=== PATIENT | female | born 1950 | race Caucasian/White ===

== ENCOUNTER 2018-12-26 09:48 | Inpatient (IN) | payer OTHER ==
[2018-12-19 12:45] LABS: URINE BILIRUBIN NEGATIVE (Negative); URINE BLOOD NEGATIVE (Negative); URINE CLARITY CLEAR; URINE COLOR YELLOW; URINE GLUCOSE-RANDOM* NEGATIVE (Negative); URINE KETONES NEGATIVE (Negative); URINE LEUKOCYTES-REFLEX NEGATIVE (Negative); URINE NITRITE-REFLEX NEGATIVE (Negative); URINE PROTEIN (DIPSTICK) NEGATIVE (Negative); URINE SPECIFIC GRAVITY <= 1.005 (1.005-1.035); URINE UROBILINOGEN 0.2 E.U./dl (0.2-1.0)
[2018-12-19 12:49] LABS: HEMATOCRIT 41.5 % (37.0-47.0); HEMOGLOBIN 14.1 gm/dL (12.0-15.0); MCH 30.4 pg (26.0-34.0); MCHC 33.9 g/dL (28.0-37.0); MCV 89.6 fL (80.0-100.0); RBC 4.63 mil/uL (4.20-5.00); RDW 13.1 % (10.5-14.5); WBC 4.3 thou/uL (4.0-11.0)
[2018-12-19 12:57] LABS: ALBUMIN 4.4 g/dL (3.4-5.0); CALCIUM 9.3 mg/dL (8.5-10.1); CREATININE 0.8 mg/dL (0.6-1.0); POTASSIUM 4.2 mmol/L (3.5-5.1)
[2018-12-19 13:02] LABS: CHOLESTEROL 267 mg/dL (<200); HDL CHOLESTEROL 59 mg/dL (>40); LDL CHOLESTEROL 181 mg/dL (<100); TC:HDL 4.5 Ratio (Not establshd); TRIGLYCERIDE 135 mg/dL (<150); VLDL 27 mg/dL (<40)
[2018-12-19 13:04] LABS: PROTIME 10.3 Seconds (9.3-11.4)
--- NOTE | 2018-12-20 07:55 | EKG ---
[address] [place] [address] ELECTROCARDIOGRAM REPORT Name: RACHELL BHAKTA Room #: [facility]#: [id number] Admission: Attend Phys: Jacob Monique MD Discharge: Date of : 54 Report #: [id number] THIS REPORT FOR: //name// [facility] Test Date: 2018-12-19 Test Time: 12:41:09 Pat Name: RACHELL BHAKTA Department: Room: Gender: F Dishwasher Preparer: adrian neumann : 1950 Requested By: Jacob Monique Order Number: [id number] MD: Solomon Martinez Measurements Intervals [place] Rate: 53 P: 24 FL: 138 QRS: 50 QRSD: 90 T: 50 QT: 445 QTc: 418 Interpretive Statements Sinus bradycardia Abnormal R-wave progression, early transition No previous ECG available for comparison Electronically Signed On 12-20-2018 7:55:09 CDT by Solomon Martinez [email or web address] <ELECTRONICALLY SIGNED> By: Solomon Martinez MD, [facility] 12/20/18 0755 1241 1241 Solomon Martinez MD, FACC /EPI
[~2018-12-26] VITALS: Ht 165.1 cm; Wt 68.9 kg
[~2018-12-26 09:48] MED LIST: ALEVE PM CAPLE1 EACH PO; ALEVE220 M1 PO; ALLER-TEC D 5-1 EACH PO; MAGNESIUM400 M1 PO; MYRBETRIQ25 MG PO; RED YEAST RICE600 M1 PO; SUPER B-50 COM1 EACH PO; TURMERIC500 M2 PO; VITAMIN D35000 UNI1 PO
[2018-12-26 10:38] VITALS: BP 134/66
[2018-12-26 18:24] VITALS: BP 132/56
[2018-12-26 19:30] VITALS: BP 112/56
--- NOTE | 2018-12-26 20:10 | NUR ---
Pt arrived to unit from recovery room in stable condition at 1535. Admission hx,assessment and care plan completed.vss.Dinner given and well tolerated.Ivf initiated.No verbal c/o.Report off to tod campbell.
[2018-12-26 20:30] VITALS: BP 107/50
--- NOTE | 2018-12-27 03:40 | NUR ---
PT ARRIVED TO THE UNIT A TRANSFER FROM . PT IS ON ISOLATION FOR CDIFF. PT HAS C/O OF BEING COLD IN THE ROOM. WE TURNED UP THE THERMOSTAT. PT IS HARD OF HEARING. PT WAS GIVEN ORAL ANTIBIOTIC BEFORE GOING TO SLEEP. WILL CONTINUE TO MONITOR.
[2018-12-27 04:15] VITALS: BP 123/55
--- NOTE | 2018-12-27 04:30 | NUR ---
ASSUMED PT CARE ON 12/26/18 AT 1915. PT HAS NO COMPLAINTS. WHEN ASSESSING PAIN PT STATES THAT SHE IS NOT IN PAIN. PT BED IN LOW POSITION WITH THE BED ALARM ON AND THE CALL LIGHT IN REACH. I CHANGED THE ICE IN THE POLAR PACK. WHEN ASSISTING PT TO THE BATHROOM SHE USES THE WALKER AND IS A STANDBY ASSIST. WHEN ASSESSING THE PT PAIN LEVEL THROUGHOUT THE SHIFT SHE STATED THAT SHE WAS NOT IN ANY PAIN. PT SLEPT THOUGHOUT THE NIGHT. WILL CONTINUE TO MONITOR.
[2018-12-27 05:52] LABS: HEMATOCRIT 36.6 % (37.0-47.0); HEMOGLOBIN 12.3 gm/dL (12.0-15.0); MCH 30.4 pg (26.0-34.0); MCHC 33.6 g/dL (28.0-37.0); MCV 90.5 fL (80.0-100.0); RBC 4.05 mil/uL (4.20-5.00); RDW 13.5 % (10.5-14.5); WBC 7.1 thou/uL (4.0-11.0)
[2018-12-27 08:00] VITALS: BP 116/46
--- NOTE | 2018-12-27 08:56 | NUR ---
INITIAL ASSESSMENT: Pt evaluated for d/c planning needs. Reviewed chart and spoke with nurse and pt. Pt is alert and oriented. Pt lives in house with spouse and was independent with ADL's prior to admission to the hospital. Pt has no DME and has not had home health in the past. Pt needs walker for home use. Will order. Pt has scheduled outpatient PT. Will remain available to assist as needed.
[2018-12-27] MEDS ORDERED: NEURONTIN 300300 M1 PO (10:51)
[2018-12-27] MEDS ORDERED: ASPIR 8181 MG PO (10:51)
[2018-12-27 15:02] VITALS: BP 116/46
[2018-12-27 15:35] VITALS: BP 116/46
--- NOTE | 2018-12-27 15:38 | NUR ---
DISCHARGE PAPERS GONE OVER SIGNED AND COPY IN CHART. IV ACSESS DCD. RX GIVEN TO PATIENT. ALL BELONGINGS PACKED AND SENT WITH PATIENT. PT W/O PAIN OR RESP DISTRESS AT DISCHARGE.
--- NOTE | 2019-01-10 12:10 | O ---
[facility] [place] [address] OPERATIVE REPORT Name: RACHELL BHAKTA Room #: 446-P [facility] M.R.#: [id number] Admission: 12/26/18 Attend Phys: Jacob Monique MD Discharge: 12/27/18 Date of : 54 Report #: [id number] THIS REPORT FOR: //name// CC: Jon Monique DATE OF SERVICE: 12/26/2018 PREOPERATIVE DIAGNOSIS: Right knee medial compartment osteoarthritis. POSTOPERATIVE DIAGNOSIS: Right knee medial compartment osteoarthritis. PROCEDURE: Right medial compartment knee arthroplasty using Navio robotic assistance. SURGEON: Jacob Monique MD. LEGAL ENTITY CONTROLLER: Maddy Weller PA-C. INDICATIONS FOR LEGAL ENTITY CONTROLLER: Throughout the case, extensive retraction and manipulation of the knee was required. This was afforded to me by my speech language pathologist assistant. ANESTHESIA: LMA with an adductor canal block. TOURNIQUET TIME: 52 minutes. ESTIMATED BLOOD LOSS: 25 mL. IMPLANTS: [employer] size 5 Journey II BCS Oxinium femur, size 1 tibia, and size 8 polyethylene. CONDITION UPON LEAVING THE OPERATING ROOM: Stable. INDICATIONS FOR PROCEDURE: The patient is a 68-year-old female with severe right knee medial compartment osteoarthritis with failed conservative measures for this and after discussion with her, she elected for right medial compartment knee arthroplasty. DESCRIPTION OF PROCEDURE: Risks, benefits, alternatives, complications were discussed in detail with the patient including but not limited to risk of anesthesia, risk of damage to nerves, arteries, blood vessels, risk for infection, bleeding, risk for continued knee pain, need for reoperation. Informed consent was obtained from the patient. Right knee was appropriately marked in the preoperative holding area. IV Ancef was given for preoperative antibiotics. Adductor canal block was placed by Anesthesia. She was brought to the operating room and placed in a supine position on operating room table. [address] [address] OPERATIVE REPORT Name: RACHELL BHAKTA Room #: 446-P [facility] IN [facility].#: [id number] Admission: 12/26/18 Attend Phys: Jacob Monique MD Discharge: 12/27/18 Date of : 54 Report #: [id number] anesthesia was induced without complication. Tourniquet was placed on the right thigh. Right lower extremity was prepped and draped in normal sterile fashion when a timeout was performed properly identifying the patient and procedure as well as the instrumentation and implants. All in the operating room were in agreement. Right lower extremity was exsanguinated, tourniquet was inflated. Tourniquet time was 52 minutes. Standard approach to the medial knee was made with 10 blade through the skin. Dissection was taken down sharply to the fascia. Deep flaps were developed medially and laterally. Fresh 10 blade was used to make a medial parapatellar arthrotomy and the knee was inspected. There was severe medial compartment osteoarthritis. The lateral compartment was well maintained. ACL was intact. 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 It was decided to proceed with medial compartment. Reference pins were then placed in the femur and the tibia and the knee was digitally mapped using the [employer] robotic system. Now we sized the size 5 femur, size 1 tibia with a 9 spacer. After acceptance of the intraoperative plan, the femoral and tibial resections were made with a Navio bur. Tibia was sized, found to be a size 1. A size 1 tibial trial was placed, pinned and drilled. A size 5 femoral trial was placed. This was then trialed with a size 8 polyethylene. Knee was taken through range of motion, found to have a millimeter of laxity medially throughout range of motion of the knee. Trial components were removed. Bony ends were thoroughly irrigated with normal saline. A final size 1 tibia, size 5 Journey Oxinium medial femoral component was cemented in place using standard cementation techniques. While the cement cured, a periarticular injection consisting of morphine, ropivacaine, epinephrine, and Toradol was placed around the knee joint capsule. After the cement cured, the tourniquet was deflated. Hemostasis was obtained with Bovie cautery. A final size 8 polyethylene was placed. A gram of vancomycin was placed deep in the joint. The fascia was closed with 0 Vicryl, skin was closed with 2-0 Vicryl, 3-0 Monocryl. Dermabond and a CHRISTEN dressing was applied. The patient tolerated this procedure well and went to recovery room under care of anesthesia postoperatively. <ELECTRONICALLY SIGNED> By: Jacob Monique MD 01/10/19 1210 1721 1803 Jacob Monique MD /nt
== END 2018-12-27 16:20 | disposition home or self-care (01) | DRG 470 ==
LOC: 4S 09:48 → TBA 09:48 → PRE 12:06 → 4S 16:54
PROVIDERS: ADMIT Orthopaedic Surgery
DX: M17.11 Unilateral primary osteoarthritis, right knee (principal)
CPT/HCPCS: 10102; 50010; 50101; 50415; 50954; 51130; 51225; 51320; 51771; 52001; 52282; 53078; 53370; 54118; 56527; 56528; 57095; 57103; 57110; 57127; 57180; 62110; 62900; 64039; 70005